=== PATIENT | male | born 1935 | race Caucasian/White ===

== ENCOUNTER 2016-05-14 17:07 | Inpatient (IN) | payer OTHER ==
--- NOTE | 2016-05-14 17:07 | EDPHY ---
HPI/HX/ROS/PE/MDM Narrative: CHIEF COMPLAINT: Hematuria HPI: The patient is an 80 y/o male arriving via EMS with his complaining of urinary retention and urinating blood clots onset today. He has a history of bladder cancer, BPH, and TURP 2 years ago. He denies recent procedures. He is also currently being treated for a URI. REVIEW OF SYSTEMS: Aside from elements discussed in the HPI, a comprehensive 10-point review of systems was reviewed and is negative. PMH: Bladder cancer with surgery, BPH, TURP 2 years ago SOCIAL HISTORY: at bedside Urologist: Dr. Smith PHYSICAL EXAM: General:Patient is alert, in no acute distress. ENT:Eyes are normal to inspection. ENT inspection normal. Neck: Normal inspection. Full range of motion. Respiratory:No respiratory distress. Breath sounds normal bilaterally. Cardiovascular: Regular rate and rhythm. Strong peripheral pulses. Normal cap refill. Abdomen:The abdomen is nontender to palpation. There are no peritoneal signs. There are normal bowel sounds. Back: Normal to inspection. No tenderness to palpation. Skin: Normal color. No rash. Warm and dry. Extremities: Normal appearance. Full range of motion. Neuro: Oriented x3. Normal motor function. Normal sensory function. ED Course: Bladder scan shows volume of 300mL. He has only passed blood here. Plan for Goldstein. RNs have not had success with 3-way irrigation. He continues to have volume in his bladder that RNs have been unable to drain. Last PO intake 9:00 this morning. 1830: 100mcg IV Fentanyl administered for pain. 0: 0.5mg IV Dilaudid administered for pain. 1909: Consulted with Dr. Smith, urologist. He plans to take patient to the OR. I discussed this with the patient and his - Data Points Medications Given: Discontinued Medications Fentanyl (Sublimaze) 100 mcg IVP EDNOW ONE Stop: 05/14/16 18:27 Last Admin: 05/14/16 18:28 Dose: 100 mcg Hydromorphone HCl (Dilaudid) 0.5 mg IVP EDNOW ONE Stop: 05/14/16 18:58 Last Admin: 05/14/16 18:59 Dose: 0.5 mg Lidocaine (Uroject Lidocaine 2% Jelly) 20 ml UR EDNOW ONE Stop: 05/14/16 18:25 Last Admin: 05/14/16 18:29 Dose: 20 ml General Initial Vital Signs: Initial Vital Signs Temperature (C) 37.1 C 05/14/16 17:10 Heart Rate 83 05/14/16 17:10 Respiratory Rate 22 H 05/14/16 17:10 Blood Pressure 144/96 H 05/14/16 17:10 O2 Sat (%) 93 05/14/16 17:10 O2 Delivery Mode Room Air Allergies/Adverse Reactions: Sulfa (Sulfonamide Antibiotics) Allergy (Verified 05/14/16 17:54) Departure - Departure Disposition: [facility] Inpatient Acute Clinical Impression: Hematuria, Urinary retention Condition: Good Instructions: Urinary Retention in Men (ED), Hematuria (ED) Additional Instructions: Follow up with Dr. Smith on Tuesday. Referrals: Darin Smith MD [Medical Doctor] - As per Instructions Report Scribed for: Venkata Sy Report Scribed by: Becca Morgan Date of Report: 05/14/16 Time of Report: 17:07 Physician Review and Approval Statement: Portions of this note were transcribed by an ED scribe. I personally performed the history, physical exam, and medical decision making; and confirm the accuracy of the information in the transcribed note.
[2016-05-14] MEDS ORDERED: LIDOCAINE 2% JELLY 20 ML (UROJECT) ONE ×2 (17:52→20:06)
[2016-05-14] MEDS ORDERED: fentaNYL 100 MCG/2 ML INJ ONE ×4 (18:07→21:27)
[2016-05-14] MEDS ORDERED: ceFAZolin 2 GM/DEXTROSE 100 ML IV ONE (18:15)
[2016-05-14] MEDS ORDERED: LIDOCAINE 2% JELLY 20 ML (UROJECT) UR ONE (18:24)
[2016-05-14] MEDS ORDERED: fentaNYL 100 MCG/2 ML INJ IVP ONE (18:26)
[2016-05-14] MEDS ORDERED: HYDROmorphONE/DILAUDID 1 MG/ML SYR IVP ONE (18:57)
[2016-05-14] MEDS ORDERED: LORazepam 2 MG/ML INJ IVP ONE (19:11)
--- NOTE | 2016-05-14 19:55 | PDGENHP ---
History and Physical - Chief Complaint blood in urine - History of Present Illness This 80 yo male with hx of intermittent hematuria began urinating pure blood this morning while in [place] at a [facility] presentation. He elected to return to [place] and presented to the ED with clot retention and inability to be irrigated. He is somewhat confused, but has no fevers. His abdomen is distended with Goldstein catheter in place. History Information - Allergies/Home Medication List Allergies/Adverse Reactions: Sulfa (Sulfonamide Antibiotics) Allergy (Verified 05/14/16 17:54) I have personally reviewed and updated: family history, medical history, social history, surgical history - Social History Smoking Status: Former smoker Physical Exam Temp Pulse Resp BP Pulse Ox 37.1 C 83 22 H 144/96 H 93 05/14/16 17:10 05/14/16 17:10 05/14/16 17:10 05/14/16 17:10 05/14/16 17:10 Constitutional: uncomfortable Cardiovascular: regular rate and rhythym Respiratory: no respiratory distress Gastrointestinal: guarding (bladder is distended) Genitourinary: other (bladder is palpably distended) Psychiatric: agitated Assessment & Plan Assessment: Hematuria (Acute) Urinary retention (Acute) Plan: The pt is in clot retention since this morning. Because he is not able to be irrigated, he will need to go to the OR for clot evacuation and fulguration.
[2016-05-14] MEDS ORDERED: IOPAMIDOL (ISOVUE-M 300) 15 ML VIAL IV ONE ×2 (20:06→20:07)
[2016-05-14 20:09] LABS: HEMATOCRIT 45.9 % (40.0-51.0); HEMOGLOBIN 15.2 g/dL (13.7-17.5)
[2016-05-14 20:12] LABS: ANION GAP 12 mEq/L (8-16); CALCIUM 9.3 mg/dL (8.5-10.4); CARBON DIOXIDE 27 mEq/l (22-31); CHLORIDE 99 mEq/L (97-110); CREATININE 0.9 mg/dL (0.7-1.3); GLOMERULAR FILTRATION RATE > 60; GLUCOSE 109 mg/dL (70-100); POTASSIUM 4.4 mEq/L (3.5-5.2); SODIUM 138 mEq/L (134-144)
[2016-05-14] MEDS ORDERED: CEFAZOLIN 2 GM/DEXTROSE/100 ML BAG IV ONE (20:15)
[2016-05-14] MEDS ORDERED: PROPOFOL 200 MG/20 ML VIAL ONE (20:40)
[2016-05-14] MEDS ORDERED: METOCLOPRAMIDE 10 MG/2 ML VIAL ONE ×2 (20:42)
[2016-05-14] MEDS ORDERED: LIDOCAINE 2% 5 ML SDV ONE (20:43)
[2016-05-14] MEDS ORDERED: HYDROCODONE/APAP 5/325 TAB PO PRN (21:36)
[2016-05-14] MEDS ORDERED: OPIUM/BELLADONNA ALKALO SUPP PR PRN (21:36)
[2016-05-14] MEDS ORDERED: ONDANSETRON 4 MG/2 ML VIAL IVP PRN (21:41)
[2016-05-14] MEDS ORDERED: ZOLPIDEM TARTRATE 5 MG TAB PO PRN (21:41)
[2016-05-14] MEDS ORDERED: NITROGLYCERIN 0.4 MG BTL SL PRN (21:44)
[2016-05-14] MEDS ORDERED: D5W LR 1,000 ML IV SCH (21:45)
--- NOTE | 2016-05-14 22:12 | GOP ---
[f rep st] OPERATIVE REPORT DATE OF OPERATION: 05/14/2016 SURGEON: Darin Smith MD ANESTHESIA: General LMA. PREOPERATIVE DIAGNOSIS: Clot urinary retention. 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 PROCEDURE PERFORMED: Cystoscopy with clot evacuation, and resection and fulguration of prostate. FINDINGS: SPECIMENS: Prostatic tissue. ESTIMATED BLOOD LOSS: Minimal. INDICATIONS: The patient is an 80-year-old male with history of hemorrhagic prostatitis who present ed to the emergency department with clot urinary retention. After being unable to irrigate him in [facility] emergency department, options were discussed and it was elected to take him to the operating room . DESCRIPTION OF PROCEDURE: After informed consent with general LMA anesthesia, the patient was place d in the lithotomy position with his genitalia sterilely prepped and draped. The bipolar resectosco pe was placed into the bladder. A large amount of clot was removed. Marked edema and hemorrhage of the bladder and prostatic epithelium were noted. This tissue was resected with the base fulgurated . No gross tumors within the bladder were noted. The scope was removed, and a 3-way irrigating Fol ey catheter placed to continue his irrigation. He was given a B and O suppository. Patient was awakened, transferred to the recovery room in stable condition. There were no intraoper ative complications. /[id number]/MODL
[2016-05-15] MEDS: ATORVASTATIN CALCIUM 40 MG TAB PO SCH (09:22)
[2016-05-15] MEDS: LEVOTHYROXINE 88 MCG TAB PO SCH (09:22)
[2016-05-15] MEDS: PANTOPRAZOLE SODIUM 40 MG TAB PO SCH (09:22)
--- NOTE | 2016-05-15 10:08 | SOAPPROG ---
SOAP Progress Note Assessment/Plan: Assessment: Clot urinary retention s/p clot evacuation/fulguration Plan: 05/15/16 10:05 I will leave the catheter in today and if there are no acute events will remove it tomorrow morning. Subjective: Pt feels much better and is having no pain. Objective: Vital Signs Temp Pulse Resp BP Pulse Ox 36.9 C 63 16 121/60 H 95 05/15/16 08:00 05/15/16 08:00 05/15/16 08:00 05/15/16 08:00 05/15/16 08:00 Laboratory Results 05/14/16 Unknown 05/14/16 Unknown 05/14/16 05/15/16 05/16/16 05:59 05:59 05:59 Intake Total 2191 Output Total 2475 Balance -284 Physical Exam - Physical Exam Abdomen: normal bowel sounds, non-tender, soft Male Genitalia: other (Catheter is pink with moderately slow irrigation with some old clots draining.) ICD10 Worksheet Patient Problems: Problems Problem Status Onset Hematuria Acute Urinary retention Acute
[2016-05-15 19:55] VITALS: RESP 16
[2016-05-15] MEDS ORDERED: TEARS/DEXTRAN 70/HYPROMELLOSE 15 ML OPHT.BTL EACHEYE PRN (23:29)
[2016-05-16] MEDS: LEVOTHYROXINE 88 MCG TAB PO SCH (06:02)
[2016-05-16 08:20] VITALS: BP 126/68; PULSE 67; TEMP 98.5; O2SAT 96
[2016-05-16] MEDS ORDERED: Herbals/Supplements -Info Only PO SCH (09:00)
[2016-05-16] MEDS ORDERED: CHOLECALCIFEROL VIT D3 2,000 UNITS TAB/CAP PO SCH (09:00)
[2016-05-16] MEDS: ATORVASTATIN CALCIUM 40 MG TAB PO SCH (09:07)
[2016-05-16] MEDS: PANTOPRAZOLE SODIUM 40 MG TAB PO SCH (09:08)
[2016-05-16] MEDS ORDERED: AZITHROMYCIN 250 MG TAB PO SCH (09:30)
[2016-05-16] MEDS ORDERED: MAGNESIUM OXIDE 400 MG TAB PO SCH (21:00)
== END 2016-05-16 12:24 | disposition home or self-care (01) | DRG 667 ==
LOC: EDUNIT# → F3E 23:10 → OBSVTOIN 05-15 10:09
PROVIDERS: ADMIT Urology; ATTEND Urology
PROC: 0TCB8ZZ Extirpation of Matter from Bladder, Via Natural or Artificial Opening Endoscopic (ICD-10-PCS; principal; 2016-05-14 20:40)
PROC: 0T5B8ZZ Destruction of Bladder, Via Natural or Artificial Opening Endoscopic (ICD-10-PCS; principal; 2016-05-14 20:40)
PROC: 0V508ZZ Destruction of Prostate, Via Natural or Artificial Opening Endoscopic (ICD-10-PCS; principal; 2016-05-14 20:40)
PROC: 0VB08ZX Excision of Prostate, Via Natural or Artificial Opening Endoscopic, Diagnostic (ICD-10-PCS; principal; 2016-05-14 20:40)
DX: N32.89 Other specified disorders of bladder (principal); N42.1 Congestion and hemorrhage of prostate; R33.9 Retention of urine, unspecified; I10 Essential (primary) hypertension; I25.10 Atherosclerotic heart disease of native coronary artery without angina pectoris; Z95.5 Presence of coronary angioplasty implant and graft
CPT/HCPCS: 96374; G0378; J0690; J1170; J2704; J2765; J3010; Q9967

== ENCOUNTER → 2016-10-26 | Outpatient (CLI) | payer OTHER | LOC: BMCIMAGING 13:22 | PROVIDERS: ATTEND Internal Medicine | DX: N44.8 Other noninflammatory disorders of the testis (principal); N50.3 Cyst of epididymis ==

== ENCOUNTER → 2017-06-16 | Outpatient (CLI) | payer OTHER ==
[~2017-06-16] MED LIST: IOPAMIDOL (ISOVUE-300) 100 ML BTL ONE
== END ==
LOC: FIMAGING 09:40
PROVIDERS: ATTEND Urology
DX: N40.0 Benign prostatic hyperplasia without lower urinary tract symptoms (principal); N28.1 Cyst of kidney, acquired; K80.20 Calculus of gallbladder without cholecystitis without obstruction; I70.0 Atherosclerosis of aorta
CPT/HCPCS: 74178; Q9967

== ENCOUNTER 2017-08-15 11:37 | Emergency (ER) | payer OTHER ==
--- NOTE | 2017-08-15 12:13 | CPEKG ---
Heart Rate: 57 RR Interval: 1053 P-R Interval: 172 QRSD Interval: 88 QT Interval: 412 QTC Interval: 401 P [place]: 37 QRS [place]: -24 T Wave [place]: 50 EKG Severity - BORDERLINE ECG - EKG Impression: SINUS RHYTHM EKG Impression: BORDERLINE LEFT AXIS DEVIATION EKG Impression: TALL R WAVE IN V2, CONSIDER RVH OR PMI Electronically Signed By: Shane Page 17-Aug-2017 08:49:39
--- NOTE | 2017-08-15 12:20 | EDPHY ---
H & P Stated Complaint: fall Time Seen by Provider: 08/15/17 12:00 - Personal History Current Tetanus/Diphtheria Vaccine: Yes Current Tetanus Diphtheria and Acellular Pertussis (TDAP): Yes - Medical/Surgical History Hx Asthma: No Hx Chronic Respiratory Disease: Yes Hx Diabetes: No Hx Cardiac Disease: Yes Hx Renal Disease: No Hx Cirrhosis: No Hx Alcoholism: No Hx HIV/AIDS: No Hx Splenectomy or Spleen Trauma: No Other PMH: TURP, [place] x 3, COPD, - Social History Smoking Status: Never smoked Constitutional: Initial Vital Signs Temperature (C) 36.8 C 08/15/17 11:43 Heart Rate 59 L 08/15/17 11:43 Respiratory Rate 16 08/15/17 11:43 Blood Pressure 151/76 H 08/15/17 11:43 O2 Sat (%) 96 08/15/17 11:43 O2 Delivery Mode Room Air Allergies/Adverse Reactions: Sulfa (Sulfonamide Antibiotics) Allergy (Verified 08/15/17 11:41) Home Medications: Medication Instructions Recorded Levothyroxine [Synthroid 88 mcg 88 mcg PO DAILY06 05/14/16 (*)] Nitroglycerin [Nitrostat 0.4 mg 0.4 mg SL Q5M PRN 05/14/16 (*)] Rabeprazole Sodium [Aciphex] 20 mg PO DAILY 05/14/16 Magnesium Oxide [Magnesium Oxide 400 mg PO HS 05/15/16 400 mg (*)] Amoxicillin 08/15/17 Belladonna-Opium 16.2-30 Supp 08/15/17 Lipitor 08/15/17 Medical Decision Making ED Course/Re-evaluation: CHIEF COMPLAINT: Fall and hit head HISTORY OF PRESENT ILLNESS: 81-year-old gentleman who 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 He bent over to get a bowel water out of the cupboard very low when he stood up quickly and lost his balance. He fell backwards and hit his occiput on the 1st cupboard and then the floor. He did break the cupboard. Patient denies loss of consciousness, denies amnesia, denies any neurologic deficits, denies nausea vomiting. The patient takes aspirin regularly but no other blood thinners. Patient had a recent prostate surgery and therefore has been off aspirin for about a week. Patient denies any other injuries besides a contusion on his occiput. REVIEW OF SYSTEMS: A 10 point review of systems was performed and is negative with the exception of the elements mentioned in the history of present illness. PHYSICAL EXAM: HR, BP, O2 Sat, RR. Temp noted General Appearance: Alert, well hydrated, appropriate, and non-toxic appearing. Head: Mild abrasion left occiput. No evidence of laceration, no step-off or scalp defect. Eyes: Pupils equal, round, reactive to light and accommodation, EOMI, no trauma , no injection. Ears: Clear bilaterally, no perforation, normal landmarks Nose: Atraumatic, no rhinorrhea, clear. Throat: There is no erythema or exudates, no lesions, normal tonsils, mucus membranes moist. Neck: Supple, 2+ carotid upstroke, nontender, no lymphadenopathy. Respiratory: No retractions, no distress, no wheezes, and no accessory muscle use. Lungs are clear to auscultation bilaterally. Cardiovascular: Regular rate and rhythm, no murmurs, rubs, or gallops. Bilateral carotid, radial, dorsalis pedis, and posterior tibial pulses intact. Good capillary refill all extremities. Gastrointestinal: Abdomen is soft, nontender, non-distended, no masses, no rebound, no guarding, no peritoneal signs. Musculoskeletal: Normal active ROM of all extremities, atraumatic. Neurological: Alert, appropriate, and interactive. The patient has normal DTRs and non-focal cranial nerves, motor, sensory, and cerebellar exam. Skin: No rashes, good turgor, no nodules on palpation. Past medical history: Vertigo, prostate stones Past surgical history: Recent prostate stone removal Family history: Noncontributory Social history: , retired, does not use tobacco drugs or alcohol, lives independently with his who is at bedside DIAGNOSTICS/PROCEDURES/CRITICAL CARE TIME: Study: [CT of the head without contrast] Indication: [Trauma] Results: CT scan of the head was obtained. The results of the study are [ normal]. The study was read by the radiologist, [Otilio]. I viewed the images myself on the PACS system. The 12 lead EKG was interpreted by myself as sinus rhythm with a rate of 57. See hard copy and/or "tracemaster" electronic copy for interpretation. DIFFERENTIAL DIAGNOSIS: Includes but is not limited to: Abrasion,skull fracture, inner table fracture, intracranial injury, epidural bleed, subdural bleed, intraparenchymal bleed MEDICAL DECISION MAKING: This patient has a mild abrasions left occiput. He had a mechanical fall which was clearly mechanical as he has chronic vertigo he was getting up from a squatting position too rapidly. Patient states he never should have done that he knew he might fall. Patient did not lose consciousness. CT scan is unremarkable. We will send the patient home with precautions. He is not require any repair of his scalp. 1202: I interpreted EKG as sinus rhythm. 1326: Spoke with Dr. Yañez, patient's head CT is normal. 1328: Reassessed patient and discussed imaging findings. Return precautions provided; patient is comfortable with this plan. Departure - Departure Disposition: Home, Routine, Self-Care Clinical Impression: Fall Qualifiers: Encounter type: initial encounter Qualified Code(s): W19.XXXA - Unspecified fall, initial encounter Abrasion of occiput Qualifiers: Encounter type: initial encounter Qualified Code(s): S00.01XA - Abrasion of scalp, initial encounter Condition: Good Instructions: Fall Prevention for Older Adults (ED), Head Injury (ED), Abrasion (ED), Fall Prevention (ED) Additional Instructions: 1. Follow-up with your primary doctor within 72 hours. 2. Return to the Emergency Department for severe headache, vomiting, vision changes, confusion, fever or other concerns. Referrals: Celia Carlton MD [Primary Care Provider] - As per Instructions
[2017-08-15 13:33] VITALS: BP 163/83
== END 2017-08-15 13:35 | disposition home or self-care (01) ==
DX: S00.01XA Abrasion of scalp, initial encounter (principal); J44.9 Chronic obstructive pulmonary disease, unspecified; W18.09XA Striking against other object with subsequent fall, initial encounter